=== PATIENT | male | born 1990 | race Two or more races ===

== ENCOUNTER 2016-06-01 13:19 | Emergency (ER) | payer OTHER ==
[~2016-06-01] VITALS: Ht 172.7 cm; Wt 80.0 kg
--- NOTE | 2016-06-01 13:29 | ERA ---
ER Documentation Chief Complaint Date/Time DATE: 06/01/16 TIME: 13:29 Chief Complaint Headache HPI The patient is a 25-year-old male, presenting to the ED because of headache after the car abrams fell on the top of his head while he was working a week ago. The pain is 10/10, no aggravating or relieving factor. He also complains of vague neck pain, denies chest pain, dyspnea, abdominal pain, vomiting, diarrhea , dysuria. He smokes and drinks socially Past medical history: Migraine Past surgical history: None ROS All systems reviewed and are negative except as per history of present illness. Medications Home Meds Active Scripts Tramadol Hcl* (Ultram*) 50 Mg Tablet, 50 MG PO Q6H Y for PAIN, #14 TAB Prov:KAREN PUCKETT MD 06/01/16 Allergies Allergies: Coded Allergies: No Known Drug Allergy (Verified Allergy, Mild, 06/01/16) PMhx/Soc History of Surgery: No Anesthesia Reaction: No Hx Neurological Disorder: Yes (migraines) Hx Respiratory Disorders: No Hx Cardiac Disorders: No Hx Psychiatric Problems: No Hx Miscellaneous Medical Probl: No Hx Alcohol Use: Yes Hx Substance Use: No Hx Tobacco Use: Yes Physical Exam Vitals Vital Signs Date Time Temp Pulse Resp B/P Pulse Ox O2 Delivery O2 Flow Rate FiO2 06/01/16 13:30 98.2 76 20 134/81 100 Physical Exam Const: No acute distress. Head: Atraumatic. No hematoma, laceration, ecchymosis Eyes: Normal Conjunctiva. ENT: Normal External Ears, Nose and Mouth. Neck: Full range of motion. No meningismus. Vague neck tenderness, no crepitus Resp: Clear to auscultation bilaterally. Cardio: Regular rate and rhythm, no murmurs. Abd: Soft, non distended, normal bowel sounds, non tender. Skin: No petechiae or rashes. Back: No midline or flank tenderness. Ext: No cyanosis, or edema. Neur: Awake and alert. No focal deficit Psych: Normal Mood and Affect. Results 24 hrs Current Medications Medications (Trade) Dose Ordered Sig/Barney Route PRN Reason Start Time Stop Time Status Last Admin Dose Admin Acetaminophen/ Hydrocodone Bitart ([place] (10/325)) 1 tab ONCE ONCE PO 06/01/16 14:30 06/01/16 14:34 DC 06/01/16 14:50 Ondansetron HCl (Zofran Odt) 4 mg ONCE STAT ODT 06/01/16 14:30 06/01/16 14:34 DC 06/01/16 14:50 Procedures/MDM [place] [address] Radiology Main Line: [phone] DIAGNOSTIC IMAGING REPORT Patient: GEORGE DELGADILLO : 1990 Age: 25 Sex: M MR #: [id number] DOS: 06/01/16 1343 Ordering MD: KAREN PUCKETT MD Location: E/R Room/Bed: PROCEDURE: CT cervical spine without contrast CLINICAL INDICATION: Pain. TECHNIQUE: CT scan of the cervical spine was performed on a multidetector high -resolution CT scanner. No IV contrast was administered. Coronal and sagittal reformatted images were obtained from the axial source images. Images were reviewed on a high-resolution PACS workstation. One or more the following does reduction techniques were utilized: Automated exposure control, adjustment of the mA/ or kV according to patient's size, or use of iterative reconstruction technique. Exam CTDI = 40.63, 22.20 mGy and the DLP = 1110.2 mGy-cm. COMPARISON: None available. FINDINGS: There is straightening of the alignment of the cervical spine with loss of the normal cervical lordosis. Alignment remains intact. No acute fracture or dislocation is seen. The vertebral body heights and disk spaces are preserved. No significant spinal canal or foraminal stenosis is noted. No mass, hematoma, or other soft tissue abnormality is seen. Opacification of the left piriformis sinus is noted which could be due to opposition of its wall. IMPRESSION: 1. No acute fracture or traumatic subluxation. 2. No significant bony cervical spinal canal or foraminal stenosis. RPTAT: HH .Jailyn Mcconnell MD, Date Time Electronically viewed and signed by .Jailyn Mcconnell MD, on 06/01/2016 14: 16 .N/ CC: KAREN PUCKETT MD [place] [address] Radiology Main Line: [phone] DIAGNOSTIC IMAGING REPORT Patient: GEORGE DELGADILLO : 1990 Age: 25 Sex: M MR #: [id number] DOS: 06/01/16 1343 Ordering MD: KAREN PUCKETT MD Location: E/R Room/Bed: PROCEDURE: CT Brain without. CLINICAL INDICATION: Pain. TECHNIQUE: A CT of the brain was performed on multidetector high-resolution CT scanner utilizing axial sections from the skull base through the vertex without contrast. The scan was reviewed in soft tissue brain and high frequency resolution bone algorithm windows. Images were reviewed on a high- resolution PACS workstation. One or more the following does reduction techniques were utilized: Automated exposure control, adjustment of themA/ or kV according to patient's size, or use of iterative reconstruction technique. The exam CTDI = 40.63, 22.20 mGy and the DLP = 1110.2 mGy-cm. COMPARISON: Brain CT 04/03/2014. FINDINGS: The ventricles and sulci are age-appropriate. There is no intracranial hemorrhage, mass effect or midline shift. No abnormal intra-axial or extra- axial fluid collections are seen. The leija/white matter differentiation is preserved. No acute skull abnormality is noted. The visualized paranasal sinuses are essentially clear. IMPRESSION: 1. No acute intracranial hemorrhage, transcortical infarction or mass effect. No significant interval change. RPTAT: HH .Jailyn Mcconnell MD, MD Date Time Electronically viewed and signed by .Jailyn Mcconnell MD, MD on 06/01/2016 14: 13 .N/ CC: KAREN PUCKETT MD MEDICAL MAKING DECISION: The patient is a 25-year-old male, presenting with acute brain concussion. He was treated with [place] 10 g p.o. for head pain and Zofran ODT for nausea with good response. The differential diagnoses considered include but are not limited to subarachnoid hemorrhage, occult trauma , CVA, meningitis, encephalitis, hypertension, tension, migraine, cluster, narcotic withdrawal, cervical spine disease. Departure Diagnosis: Primary Impression: Concussion Additional Impressions: Migraine Neck pain Condition: Good Comments He was discharged with [facility] I discussed the findings with the patient. I advised the patient to follow-up with the primary physician in about 1-2 days, sooner if needed and return if any concern. The patient's blood pressure was elevated (>120/80) but appears stable without evidence of hypertension emergency or urgency. The patient was counseled about the risks of hypertension and urged to pursue outpatient monitoring and therapy within a week with their primary care physician. KAREN PUCKETT MD Jun 01, 2016 13:29
[2016-06-01 13:30] VITALS: Ht 172.7 cm; Wt 80.0 kg
--- NOTE | 2016-06-01 14:13 | RADRPT ---
PROCEDURE: CT Brain without. CLINICAL INDICATION: Pain. TECHNIQUE: A CT of the brain was performed on multidetector high-resolution CT scanner utilizing a xial sections from the skull base through the vertex without contrast. The scan was reviewed in sof t tissue brain and high frequency resolution bone algorithm windows. Images were reviewed on a high -resolution PACS workstation. One or more the following does reduction techniques were utilized: Aut omated exposure control, adjustment of themA/ or kV according to patient's size, or use of iterative reconstruction technique. The exam CTDI = 40.63, 22.20 mGy and the DLP = 1110.2 mGy-cm. COMPARISON: Brain CT 04/03/2014. FINDINGS: The ventricles and sulci are age-appropriate. There is no intracranial hemorrhage, mass effect or mi dline shift. No abnormal intra-axial or extra-axial fluid collections are seen. The leija/white diana er differentiation is preserved. No acute skull abnormality is noted. The visualized paranasal sinus es are essentially clear. IMPRESSION: 1. No acute intracranial hemorrhage, transcortical infarction or mass effect. No significant interv al change. RPTAT: HH .Jailyn Mcconnell MD, MD Date Time Electronically viewed and signed by .Jailyn cMconnell MD, MD on 06/01/2016 14:13 .N/
--- NOTE | 2016-06-01 14:17 | RADRPT ---
PROCEDURE: CT cervical spine without contrast CLINICAL INDICATION: Pain. TECHNIQUE: CT scan of the cervical spine [facility] No [facility] contrast was administered. Coronal and sagittal reformatted images were obtained from th e axial source images. Images were reviewed on a high-resolution PACS workstation. One or more the f ollowing does reduction techniques were utilized: Automated exposure control, adjustment of the mA/ or kV according to patient's size, or use of iterative reconstruction technique. Exam CTDI = 40.63, 22.20 mGy and the DLP = 1110.2 mGy-cm. COMPARISON: None available. FINDINGS: There is straightening of the alignment of the cervical spine with loss of the normal cervical lordo sis. Alignment remains intact. No acute fracture or dislocation is seen. The vertebral body heigh ts and disk spaces are preserved. No significant spinal canal or foraminal stenosis is noted. No mas s, hematoma, or other soft tissue abnormality is seen. Opacification of the left piriformis sinus i s noted which could be due to opposition of its wall. IMPRESSION: 1. No acute fracture or traumatic subluxation. 2. No significant bony cervical spinal canal or foraminal stenosis. RPTAT: HH .Jailyn Mcconnell MD, Date Time Electronically viewed and signed by .Jailyn Mcconnell MD, MD on 06/01/2016 14:16 .N/
[2016-06-01] MEDS ORDERED: ONDANSETRON (ODT) 4 MG TAB ODT STA (14:30)
[2016-06-01] MEDS ORDERED: HYDROCODONE/APAP (10/325) TAB PO ONE (14:30)
[2016-06-01] MEDS ORDERED: TRAM-40 PO (15:22)
[2016-06-01 15:43] VITALS: BP 121/57; PULSE 64; RESP 14
== END 2016-06-01 15:38 | disposition home or self-care (01) ==
LOC: E/R 13:19
DX: S06.0X0A Concussion without loss of consciousness, initial encounter (principal); G43.909 Migraine, unspecified, not intractable, without status migrainosus; S19.9XXA Unspecified injury of neck, initial encounter; F17.210 Nicotine dependence, cigarettes, uncomplicated; W20.8XXA Other cause of strike by thrown, projected or falling object, initial encounter; Y92.69 Other specified industrial and construction area as the place of occurrence of the external cause
CPT/HCPCS: 70450; 72125; Z7502; Z7610

== ENCOUNTER 2018-01-11 05:35 | Emergency (ER) | END 2018-01-11 08:08 | disposition home or self-care (01) ==